=== PATIENT | male | born 1990 | race Hispanic/Latino ===

== ENCOUNTER 2016-10-31 13:02 | Emergency (ER) | payer OTHER ==
[~2016-10-31] VITALS: Ht 172.7 cm; Wt 77.1 kg
[2016-10-31] MEDS ORDERED: MORPHINE 4 MG/ML 1ML SYRINGE IV ONE (13:30)
[2016-10-31] MEDS ORDERED: CLINDAMYCIN 900 MG in APPROPRIATE DILUENT 1 EA IV ONE (13:30)
[2016-10-31] MEDS ORDERED: methylPREDNISolone INJ 125 MG/2 ML VIAL (J2930) IV ONE (13:30)
[2016-10-31] MEDS ORDERED: NS 1,000 ML IV ONE (13:30)
[2016-10-31 13:55] LABS: BASO % 0.2 % (0.0-1.0); EOS # 0.2 K/mm3 (0.0-0.50); EOS % 1.3 % (0.0-3.0); LARGE UNSTAINED CELL # 0.2 K/mm3 (0.0-0.4); LARGE UNSTAINED CELL % 1.6 % (0.0-4.0); LYMPH # 1.3 K/mm3 (1.5-6.5); LYMPH % 9.1 % (24.0-44.0); MEAN CORPUSCULAR HEMOGLOBIN 31.8 pg (27.0-33.0); MEAN CORPUSCULAR HGB CONC 34.3 g/dl (32.0-36.5); MEAN CORPUSCULAR VOLUME 92.5 fl (80.0-96.0); MONO # 0.8 K/mm3 (0.0-0.8); MONO % 6.5 % (0.0-5.0); NEUTROPHILS # 9.7 K/mm3 (1.8-7.7); NEUTROPHILS % 81.3 % (36.0-66.0); PLATELET COUNT, AUTOMATED 262 k/mm3 (150-450); RED CELL DISTRIBUTION WIDTH 12.4 % (11.5-14.5); WHITE BLOOD COUNT 11.9 K/mm3 (4.0-10.0)
[2016-10-31 14:14] LABS: ANION GAP 9 MEQ/L (8-16); BLOOD UREA NITROGEN 12 MG/DL (7-18); CALCIUM LEVEL 8.8 MG/DL (8.5-10.1); CARBON DIOXIDE LEVEL 26 MEQ/L (21-32); CHLORIDE LEVEL 101 MEQ/L (98-107); CREATININE FOR GFR 0.92 MG/DL (0.70-1.30); GLOMERULAR FILTRATION RATE > 60.0 (>60); GLUCOSE, FASTING 97 MG/DL (70-105); POTASSIUM SERUM 3.6 MEQ/L (3.5-5.1); SODIUM LEVEL 136 MEQ/L (136-145)
[2016-10-31] MEDS ORDERED: ISOVUE-370 76% 100ML VIAL (Q9967) As Ordered ONE (14:28)
[2016-10-31] MEDS ORDERED: PRED20TA PO (15:37)
[2016-10-31] MEDS ORDERED: AMOX500C PO (15:37)
[2016-10-31] MEDS ORDERED: ULTR50TA PO (15:37)
[2016-10-31 16:01] VITALS: BP 123/77
--- NOTE | 2016-11-01 07:02 | REP ---
CT NECK WITH CONTRAST: HISTORY: Abscess. A BB was placed over the right zygoma. There is enlargement of the tonsils, greater on the right than on the left. There is extension of the tonsillar enlargement into the soft palate. There is superior extension on the right into the nasopharynx. There is minimal mass effect on the nasal pharynx. There is inferior extension into the lateral holloway of the ever- and upper hypopharynx. There is moderate mass effect on the oropharynx and minimal mass effect on the hypopharynx. The larynx and subglottic trachea are normal in appearance. The salivary and thyroid glands are normal. An enlarged lymph node 1.7 cm in width is present in the right internal jugular chain at the level of the ever- and hypopharynx. An enlarged lymph node 1.6 cm in width is present in the left internal jugular chain at the level of the ever- and hypopharynx. Small lymph nodes less than 1 cm in size are present in the posterior triangles, submandibular and submental areas. The lung apices are clear. The visualized sinuses are clear. IMPRESSION: The above findings are consistent with tonsillitis and lymphadenitis. There is moderate mass effect on the ever- and minimal mass effect on the hypopharynx. Unreviewed
== END 2016-10-31 16:03 | disposition home or self-care (01) ==
LOC: M ED 13:36
DX: J03.90 Acute tonsillitis, unspecified (principal)
CPT/HCPCS: 70491; 80048; 85025; 96374; 96375; 99283; J2930; Q9967

== ENCOUNTER 2016-11-19 05:57 | Emergency (ER) | payer OTHER ==
[~2016-11-19] VITALS: Ht 172.7 cm; Wt 77.1 kg
[~2016-11-19 05:57] MED LIST: AMOX500C PO; PRED20TA PO; ULTR50TA PO
[2016-11-19 06:10] VITALS: BP 129/78
[2016-11-19] MEDS ORDERED: NAPR500T PO (07:18)
[2016-11-19] MEDS ORDERED: NAPROXEN 250 MG TAB PO ONE (07:30)
--- NOTE | 2016-11-19 07:56 | REP ---
Right knee five views: Mineralization and joint spaces are normal. There is no fracture or dislocation. No calcifications or foreign bodies. Impression: Essentially negative right knee. Signed by Malcolm Mathis MD 11/19/2016 07:48 A
== END 2016-11-19 07:33 | disposition home or self-care (01) ==
LOC: M ED 07:24
DX: S83.421A Sprain of lateral collateral ligament of right knee, initial encounter (principal); W19.XXXA Unspecified fall, initial encounter; Y92.89 Other specified places as the place of occurrence of the external cause; Y93.89 Activity, other specified; Y99.1 Military activity

== ENCOUNTER 2016-12-03 00:56 | Emergency (ER) | payer OTHER ==
[~2016-12-03] VITALS: Ht 172.7 cm; Wt 77.1 kg
[~2016-12-03 00:56] MED LIST changes: +NAPR500T PO
[2016-12-03 01:01] VITALS: BP 141/67
[2016-12-03] MEDS ORDERED: ISOVUE-370 76% 100ML VIAL (Q9967) As Ordered ONE (04:09)
[2016-12-03] MEDS ORDERED: AMPICILLIN SOD/SULBACTAM SOD 3 GM in D5W MINI-BAG PLUS 100 ML IV ONE (04:15)
[2016-12-03] MEDS ORDERED: methylPREDNISolone INJ 125 MG/2 ML VIAL (J2930) IV ONE (04:15)
[2016-12-03] MEDS ORDERED: LIDOCAINE VISCOUS 2% SOLN 15ML UDC SS ONE (04:15)
[2016-12-03 04:29] LABS: BASO # 0.1 K/mm3 (0.0-0.2); BASO % 0.4 % (0.0-1.0); EOS # 0.3 K/mm3 (0.0-0.50); EOS % 1.9 % (0.0-3.0); LARGE UNSTAINED CELL # 0.2 K/mm3 (0.0-0.4); LARGE UNSTAINED CELL % 1.1 % (0.0-4.0); LYMPH # 2.3 K/mm3 (1.5-6.5); LYMPH % 11.9 % (24.0-44.0); MEAN CORPUSCULAR HEMOGLOBIN 31.3 pg (27.0-33.0); MEAN CORPUSCULAR HGB CONC 34.2 g/dl (32.0-36.5); MEAN CORPUSCULAR VOLUME 91.5 fl (80.0-96.0); MONO # 0.9 K/mm3 (0.0-0.8); MONO % 5.3 % (0.0-5.0); NEUTROPHILS # 13.8 K/mm3 (1.8-7.7); NEUTROPHILS % 79.4 % (36.0-66.0); PLATELET COUNT, AUTOMATED 265 k/mm3 (150-450); RED CELL DISTRIBUTION WIDTH 12.7 % (11.5-14.5); WHITE BLOOD COUNT 17.4 K/mm3 (4.0-10.0)
--- NOTE | 2016-12-03 04:50 | REPUSA ---
CLINICAL HISTORY: Pain. TECHNIQUE: Multiple axial CT images were obtained through the neck with IV contrast material. MPR cor onal and sagittal sequences were obtained. COMMENTS: Comparison is made to the prior exam on 10/31/2016. Increased bilateral tonsillar swelling and enlargement. Increase in the size of a peritonsillar abscess formation measuring 1.8 cm on the current exam. Unchanged mild bilateral cervical reactive lymphadenopathy. The piriform sinuses are normal. There is no supra or infraglottic laryngeal mass. The proximal trach ea is normal. There is no paravertebral soft tissue mass. The salivary glands are normal. The paravertebral soft tissue space is normal. Limited images through the posterior fossa demonstrate no evidence for tonsilar herniation. Evaluation of the visualized lung apices reveals no evidence for abnormality. IMPRESSION: Increased bilateral tonsillar swelling and enlargement. Increase in the size of the right peritonsillar abscess formation measuring 1.8 cm on the current exa m. Unchanged cervical lymphadenopathy. Thank you for your kind referral of this patient.
[2016-12-03] MEDS ORDERED: AUGM875T27 PO (06:21)
== END 2016-12-03 06:37 | disposition home or self-care (01) ==
LOC: M ED 01:58
DX: J36 Peritonsillar abscess (principal); Z79.1 Long term (current) use of non-steroidal anti-inflammatories (NSAID)
CPT/HCPCS: 70491; 85025; 87040; 87880; 96365; 96375; 99283; J2930; Q9967